=== PATIENT | female | born 2005 | race Caucasian/White ===

== ENCOUNTER 2024-03-25 16:49 | Emergency (ER) | payer OTHER, SELFPAY ==
[2024-03-25 16:53] VITALS: BP 131/76
[2024-03-25] MEDS: DUONEB 3 ML INH (18:16)
--- NOTE | 2024-03-25 18:25 | ED.GENMED ---
History of Present Illness
General
Chief Complaint: Breathing Problem
Source: patient
Time Seen by Provider: 03/25/24 17:34
Travel History
Have you had any contact with someone who has COVID-19?: No
Do you have any symptoms of coronavirus? Fever > 100 degrees, chills, cough, shortness of breath, sore throat, loss of taste or smell, muscle aches, or headache?: Yes
Symptoms:: cough
History of Present Illness
History of Present Illness:
18-year-old female presents to the emergency room complaining of cough, shortness of breath and subjective wheezing. Mom and patient states that she was very healthy without any medical issues until about 4 months ago she began having a cough,
earache, runny nose etc. She was diagnosed with acute bronchitis. Since that time she has had multiple episodes of similar symptoms. She has been on a couple courses of steroids. She most recently was also on a course of cefdinir for a 'ear
infection'. Patient was last course of steroids began on Mother's Day and completed about a week ago. She took a 12-day course of steroids. She felt like she was a little bit better while taking them but her symptoms did not go away completely.
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 They do not recall which bloom conveyor operator.
Past History
Social History
Tobacco: Non-smoker
Alcohol: None
Drug: None
Phy Exam
Physical Exam
Physical Exam:
General: Awake, Alert, Oriented X3. No acute distress. Cough with deep inspiration
Vitals: unremarkable
Head: Atraumatic
Eyes: Pupils equal, EOMI
Throat: Airway intact, no exudates
Neck: Trachea midline
Lungs: Mild expiratory wheeze
Heart: Regular rate, no murmurs
Abd: Soft, Nontender, No pulsatile mass
Neuro: Nonfocal
Skin: Warm, dry, no rash
Extremities: pulses equal b/l, no edema
Course
Orders/Labs/Results
Orders:
Orders
03/25/24 18:12
Ipratropium/Albuterol Sulfate [Duoneb] 3 ml INH R NOW STA
03/25/24 18:25
Test Result ONCE
Vital Signs
Initial and Last Documented VS:
Initial Vital Signs
Temp Pulse Resp BP Pulse Ox
99.9 F 88 16 131/76 98
03/25/24 16:53 03/25/24 16:53 03/25/24 16:53 03/25/24 16:53 03/25/24 16:53
Last Documented Vital Signs
Temp Pulse Resp BP Pulse Ox
99.9 F 88 16 131/76 97
03/25/24 16:53 03/25/24 16:53 03/25/24 16:53 03/25/24 16:53 03/25/24 19:15
MDM/Problems Addressed
Differential Diagnosis Includes:
Chronic cough from GERD, seasonal allergy, bronchospasm, infectious bronchitis
MDM/Problems Addressed:
Patient presents for evaluation of cough that been present for the past 3 months. I do not believe the patient is suffering from an infectious process given the length of time she has been symptomatic as well is the fact that the cough is mostly
nonproductive and she is afebrile. She is otherwise healthy. She was fully immunized so I doubt that she is having a chronic cough from pertussis. I do suspect that the cough is more likely bronchospastic from either development of asthma or
department of allergens. The other more likely possibility is chronic cough from reflux. We will cover the potential bronchospasm etiology with prescription for Flovent and she can continue using her albuterol metered-dose inhaler every 4-6 hours.
Will prescribe Protonix for possibility of reflux. Recommend the patient follow-up with pulmonary for a more advanced evaluation for bronchospasm or other pulmonary pathology.
*Pulse Oximetry
Patient hypoxic: no
*Critical Care Note
Total Time (30-74mins, 75-104mins- exclusive of procedures): Not Applicable
Data Reviewed
Further Testing Considered But Not Given:
Chest x-ray discussed with family. She had an x-ray at an urgent care 4 days ago. Initially the family was concerned that the quality of the imaging may not be adequate given it was performed at an urgent care. We discussed the risks and benefits
of repeat imaging with the consideration of radiation exposure. Initially patient and mom expressed their preference for imaging. However after further consideration they have decided against further imaging at this time. I think holding off on
further imaging is reasonable as urgent cares typically have their imaging over read by radiologist.
ED Attending Note
-
Portions of this chart may have been created with voice recognition software.� Occasional wrong word or��sound alike� substitutions may have occurred due to the inherent limitations of voice recognition software.
Discharge Plan
Departure
Patient Disposition: Home (Routine Discharge)
Date of Disposition: 03/25/24
Time of Disposition: 19:19
Patient with high blood pressure during this ER visit?: No
Condition: Good
Discharge Problem:
Bronchospasm, Cough
Instructions: Wheezing, Cough, Adult ED
Prescriptions:
New
pantoprazole [Protonix] 40 mg tablet,delayed release (DR/EC)
40 mg PO DAILY Qty: 30 0RF
fluticasone propionate 100 mcg/actuation blister with device
1 inh inhalation BID Qty: 60 0RF
doxycycline monohydrate 100 mg capsule
100 mg PO BID Qty: 14 0RF
No Action
multivitamin 1 EACH tablet
1 ea PO DAILY
famotidine [Pepcid AC] 10 MG tablet,chewable
10 mg PO BID Qty: 60 0RF
Referrals:
Milton Keita MD [Active] -
Interventions
Interventions:
*Risk Screen - Suicide Last Done: 03/25/24 16:53
*General Assessment Last Done: 03/25/24 16:53
*Neglect/Abuse Screening Last Done: 03/25/24 16:53
ED- Fall Risk Assessment Last Done: 03/25/24 19:01
*ED COVID-19 Vaccine History Last Done: 03/25/24 19:32
*Nursing Disposition Last Done: 03/25/24 19:32
ED- Cardiac Assessment Last Done: 03/25/24 19:01
ED- Pulmonary Assessment Last Done: 03/25/24 19:01
Discharge Date and Time
Discharge Date/Time: 03/25/24 19:32
Print Language: UPPER SORBIAN
== END 2024-03-25 19:32 | disposition home or self-care (01) ==
LOC: EMR 16:49
PROVIDERS: EMERGENCY PHYSICIAN Emergency Medicine
DX: J98.01 Acute bronchospasm (principal); R05.9 Cough, unspecified
CPT/HCPCS: 99283; 94640

== ENCOUNTER → 2024-03-31 13:07 | Outpatient (REF) | payer OTHER, SELFPAY ==
[2024-03-31 16:27] LABS: % Basophils 0.8 % (0-2); % Eosinophils 4.7 % (0-6); % Immature Granulocytes 0.3 % (0-0.5); % Lymphocytes 32.3 % (20.5-51.1); % Monocytes 6.5 % (1.7-9.3); % Neutrophils 55.4 % (42.2-75.2); Absolute Basophils 0.1 10^3/uL (0-0.2); Absolute Eosinophils 0.4 10^3/uL (0-0.7); Absolute Lymphocytes 2.5 10^3/uL (1.2-3.4); Absolute Monocytes 0.5 10^3/uL (0.1-0.6); Absolute Neutrophils 4.2 10^3/uL (1.4-6.5); Hematocrit 36.3 % (37.0-47.0); Hemoglobin 13.1 g/dL (12.0-16.0); Mean Corp Hgb Conc. 36.1 g/dL (33.0-37.0); Mean Corpuscular Hgb 29.8 pg (27.0-31.0); Mean Corpuscular Volume 82.5 fL (81.0-99.0); Mean Platelet Volume 9.7 fL (7.4-10.4); Nucleated Red Blood Cells % 0 %; Platelet Count 385 10^3/uL (130-400); White Blood Cell Count 7.6 10^3/uL (4.8-10.8)
== END ==
LOC: HWLAB 13:07
PROVIDERS: ATTENDING PHYSICIAN Internal Medicine Critical Care Medicine; FAMILY PHYSICIAN Family Medicine
DX: R05.3 Chronic cough (principal); R06.00 Dyspnea, unspecified
CPT/HCPCS: 36415; 85025

== ENCOUNTER 2025-09-18 15:29 | Emergency (ER) | payer OTHER, SELFPAY ==
[2025-09-18 15:31] VITALS: BP 110/63
[2025-09-18 16:43] VITALS: BMI 23.3
[2025-09-18 16:45] VITALS: BP 116/62
[2025-09-18 17:00] VITALS: BP 106/62
[2025-09-18 17:53] LABS: Hematocrit 39.6 % (37.0-47.0); Hemoglobin 13.6 g/dL (12.0-16.0); Mean Corp Hgb Conc. 34.3 g/dL (33.0-37.0); Mean Corpuscular Volume 86.1 fL (81.0-99.0); Nucleated Red Blood Cells % 0 %; Platelet Count 315 10^3/uL (130-400); Red Cell Dist. Width 11.9 % (11.5-14.5)
[2025-09-18 17:58] LABS: Urine Character Clear (Clear)
[2025-09-18 18:04] LABS: HCG, Serum Qualitative Screen Negative
[2025-09-18 18:08] LABS: ALT (SGPT) 12 U/L (0-35); AST (SGOT) 20 U/L (14-36); Albumin 4.3 g/dl (3.5-5.0); Alkaline Phosphatase 56 U/L (38-126); Blood Urea Nitrogen 13 mg/dl (7-17); Calcium 9.8 mg/dl (8.4-10.2); Carbon Dioxide 24 mmol/L (22-30); Chloride 104 mmol/L (98-107); Estimated Creatinine Clearance 100 ml/min; Glucose 81 mg/dl (70-99); Lipase 85 U/L (23-300); Potassium 4.5 mmol/L (3.5-5.1); Sodium 133 mmol/L (135-145); Total Protein 7.2 g/dl (6.3-8.2); eGFR > 60.00
--- NOTE | 2025-09-18 18:17 | ED.GENMED ---
History of Present Illness
General
Chief Complaint: Abdominal Pain
Source: patient and family (Father)
Exam Limitations: none
Time Seen by Provider: 09/18/25 16:48
Nursing documentation reviewed up to this point in time: agreed with
History of Present Illness
History of Present Illness:
Patient to the emergency department for evaluation of severe upper abdominal pain. Symptoms started in June and have progressively gotten worse. She was evaluated in the ED at [facility] approximately 1 week ago. She had a CT evaluation at
that time. No findings on CT to explain her pain. I reviewed her labs from that visit. WBC was mildly elevated 11.5. T. bili 1.4. She was discharged home and advised to follow-up with GI, or return to the emergency department if her symptoms
worsen. She returned home from school for Thanksgiving break and continues to complain of worsening pain. Brought to the emergency department by her father for evaluation. She denies fever or chills. Reports nausea but no vomiting.
Past History
Past History
ED Past Medical History: GERD and Other (IBS)
Social History
Tobacco: Non-smoker
Alcohol: None
Drug: None
Review of Systems
Review of Systems
Allergies reviewed?: Yes
All Other Systems: ROS reviewed and negative except as documented in HPI and ROS
Constitutional: Reports no symptoms
EENT: Reports no symptoms
Respiratory: Reports no symptoms
Cardiac: Reports no symptoms
ABD/GI: Reports abdominal pain (Upper abdominal pain)
: Reports no symptoms
Musculoskeletal: Reports no symptoms
Skin: Reports no symptoms
Neurological: Reports no symptoms
Psychiatric: Reports no symptoms
Phy Exam
General Physical Exam
General Presentation: well appearing and mild distress
General age: appears stated age
General Skin: warm and dry
General Habitus: normal
General Mental: alert
General Hydration: appears well hydrated
Cardiovascular Exam
Cardiovascular Exam: regular rate/rhythm
Pulmonary Exam
Pulmonary Exam: lungs clear and no respiratory distress
Gastrointestinal Exam
Gastrointestinal Exam: normal bowel sounds, soft, no organomegaly, no pulsatile mass and non distended
Palpation: left upper quadrant: Moderate tenderness, left lower quadrant: Mild tenderness, right upper quadrant: Moderate tenderness and right lower quadrant: Mild tenderness
Musculoskeletal Exam
Musculoskeletal Exam: full ROM
Skin Exam
Skin Exam: normal color, warm/dry and no rash
Psychiatric Exam
Psychiatric Exam: normal mood/affect
Course
Orders/Labs/Results
Orders:
Orders
09/18/25 17:18
Test Result ONCE
US Abdomen Complete/Upper Urgent
Comment:
Reason For Exam: upper abd. pain
09/18/25 17:37
Complete Blood Count/With Diff Urgent
Comprehensive Metabolic Panel Urgent
HCG, Serum Qualitative Screen Urgent
Lipase Urgent
Urinalysis Reflex To Culture Urgent
Date Specimen was Collected: 09/18/25
Time Specimen was Collected: 17:21
Urine Microscopic Reflex Cult Urgent
09/18/25 20:18
Famotidine [Pepcid] 20 mg PO NOW STA
Abnormal Lab Results
09/18/25
17:37
Sodium 133 L mmol/L
(135-145)
Total Bilirubin 1.4 H mg/dl
(0.2-1.3)
Ur Occult Blood Reflex 1+ A
(Negative)
Urine Albumin (Reflex) 1+ A
(Neg - Trace)
09/18/25 17:37
09/18/25 17:37
Vital Signs
Initial and Last Documented VS:
Initial Vital Signs
Temp Pulse Resp BP Pulse Ox
97.3 F 74 15 110/63 100
09/18/25 15:31 09/18/25 15:31 09/18/25 15:31 09/18/25 15:31 09/18/25 15:31
Last Documented Vital Signs
Temp Pulse Resp BP Pulse Ox
97.3 F 74 15 103/52 99
09/18/25 15:31 09/18/25 15:31 09/18/25 15:31 09/18/25 20:00 09/18/25 20:15
*Radiology
Radiology exam reviewed: radiology read reviewed
*Pulse Oximetry
SaO2: 99
Oxygen Mode of Delivery: Room air
Patient hypoxic: no
*Critical Care Note
Total Time (30-74mins, 75-104mins- exclusive of procedures): Not Applicable
Update Note
Update Note:
Patient to ED with complaint of ongoing, worsening upper abd pain, R>L, Symptoms started in Jun. Pain is intermittent. There are no aggravating or alleviating factors She denies fever/chills. No recent illness. SHe was evaluated in ED at [facility]. Labs reveal WBC 10.5, Tbili 1.2, all other results WNL. She had abd/pelvic CT which was neg for any disease process. She was discharged home and instructed to follow up with GI. She is currently home on break from school. She continues to
complain of upper abdominal pain. She was brought to the emergency department by her father for evaluation. On exam she is alert and oriented in no visible distress. Vital signs are stable, she remains afebrile. Abdominal exam: Abdomen is soft,
no organomegaly. Bowel sounds all 4 quadrants. She has moderate abdominal tenderness to her upper abdomen,R>L. Labs reviewed WBC is 8.8. Lactic 1.4. All other results WNL. UA negative for UTI. Abdominal ultrasound was performed. Results
normal, gallbladder is without calculi wall thickening or Pericholecystic fluid,. Negative More sign. Reviewed results with patient and parents. Mother is concerned that patient is suffering from biliary colic. Mother states that she was told
by friends that this is possible even without evidence of gallbladder disease on imaging, without gallstones. Mother also reports that patient has had a HIDA scan in the past and that this result was also normal. Discussed exam and testing results
again with mother. Reassurance provided. advised patient and mother the need for further evaluation with GI. Referral for GI was provided to them. Patient is awake and alert, in no distress. Will discharge home tonight and she will schedule
appointment with GI in AM. She was given instructions on signs and symptoms to return to the emergency department and she is agreeable to this plan.
ED Attending Note
-
Portions of this chart may have been created with voice recognition software.� Occasional wrong word or��sound alike� substitutions may have occurred due to the inherent limitations of voice recognition software.
Discharge Plan
Departure
Patient Disposition: Home (Routine Discharge)
Date of Disposition: 09/18/25
Time of Disposition: 20:18
Patient with high blood pressure during this ER visit?: No
Condition: Good
Covid-19: Not Applicable
Discharge Problem:
Abdominal pain
Instructions: Abdominal Pain
Prescriptions:
No Action
multivitamin 1 EACH tablet
1 ea PO DAILY
famotidine [Pepcid AC] 10 MG tablet,chewable
10 mg PO BID Qty: 60 0RF
pantoprazole [Protonix] 40 mg tablet,delayed release (DR/EC)
40 mg PO DAILY Qty: 30 0RF
fluticasone propionate 100 mcg/actuation blister with device
1 inh inhalation BID Qty: 60 0RF
doxycycline monohydrate 100 mg capsule
100 mg PO BID Qty: 14 0RF
Referrals:
Aleta De Luna DO [Family Provider, Family Practice]
Lynsey Sexton MD [Active, Gastroenterology] - Call in 1-3 days for appt
Activity Restrictions/Additional Instructions:
Take Pepcid 20 mg daily. Follow-up with gastroenterology. Return to the emergency department immediately for any changes in/worsening of your symptoms.
Interventions
Interventions:
*Risk Screen - Suicide Last Done: 09/18/25 15:31
*General Assessment Last Done: 09/18/25 16:42
*Neglect/Abuse Screening Last Done: 09/18/25 15:31
*ED- Fall Risk Assessment Last Done: 09/18/25 16:42
*ED COVID-19 Vaccine History Last Done: 09/18/25 16:42
*ED Influenza Vaccine History Last Done: 09/18/25 16:42
*Nursing Disposition Last Done: 09/18/25 20:48
IY-Ufaaok-Okzbwffwpe Assessment Last Done: 09/18/25 16:48
Discharge Date and Time
Discharge Date/Time: 09/18/25 20:48
Print Language: GREENLANDIC
[2025-09-18 18:27] LABS: Urine Red Blood Cell 0-2 /HPF (0-2); Urine Squamous Cell 21-25 /LPF (Few); Urine White Cell 0-2 /HPF (0-5)
[2025-09-18 19:57] VITALS: BP 105/66
[2025-09-18 20:00] VITALS: BP 103/52
[2025-09-18] MEDS: PEPCID 20 MG PO (20:26)
== END 2025-09-18 20:48 | disposition home or self-care (01) ==
LOC: EMR 15:29
PROVIDERS: Nurse Practitioner; EMERGENCY PHYSICIAN Student in an Organized Health Care Education/Training Program; FAMILY PHYSICIAN Family Medicine
DX: R10.10 Upper abdominal pain, unspecified (principal); K58.9 Irritable bowel syndrome, unspecified
CPT/HCPCS: 99284; 76700; 80053; 81003; 81015; 83690; 84703; 85025